=== PATIENT | female | born 1955 | race Two or more races ===

== ENCOUNTER → 2017-01-07 | Outpatient (CLI) | payer OTHER ==
--- NOTE | 2017-01-07 10:30 | RAD ---
DATE: 01/07/2017 EXAM: DIGITAL SCREEN BILAT W/CAD HISTORY: Routine screening COMPARISON: 03/07/2014 This study was interpreted with the benefit of Computerized Aided Detection (CAD). The breast parenchyma shows scattered fibroglandular densities. Breast parenchyma level B. FINDINGS: There are scattered fibroglandular densities in both breasts in a somewhat nodular pattern. There is a suggestion of a new nodule present anterolaterally in the left breast as best seen on the cc view. No other new or enlarging breast densities are seen. No suspicious microcalcifications are evident. IMPRESSION: Possible new left breast nodule. Diagnostic mammography including spot compression and straight medial lateral views are suggested. If a suspicious density persists, left breast ultrasound will be indicated. BI-RADS CATEGORY: 0 INCOMPLETE: NEEDS ADDITIONAL IMAGING EVALUATION AND/OR PRIOR MAMMOGRAMS FOR COMPARISON. RECOMMENDED FOLLOW-UP: ADD ADDITIONAL IMAGING PQRS compliance statement: Patient information was entered into a reminder system with a target due date for the next mammogram. Mammography is a sensitive method for finding small breast cancers, but it does not detect them all and is not a substitute for careful clinical examination. A negative mammogram does not negate a clinically suspicious finding and should not result in delay in biopsying a clinically suspicious abnormality. "Our facility is accredited by the [employer] Mammography [employer]."
== END | disposition home or self-care (01) ==
LOC: MAMMO 08:58
PROVIDERS: ATTEND Specialist
DX: Z12.31 Encounter for screening mammogram for malignant neoplasm of breast (principal)
CPT/HCPCS: G0202; 77067

== ENCOUNTER → 2017-01-22 | Outpatient (CLI) | payer OTHER ==
--- NOTE | 2017-01-22 12:22 | RAD ---
DATE: 01/22/2017 EXAM: DIGITAL DIAGNOSTIC LT, BREAST LEFT HISTORY: Suspicious screening study COMPARISON: 01/07/2017, 03/07/2014 This study was interpreted with the benefit of Computerized Aided Detection (CAD). The breast parenchyma shows scattered fibroglandular densities. Breast parenchyma level B. FINDINGS: Additional views of the left breast including CC liam images confirm the presence of a small 5 mm nodule in the lateral aspect left breast at the 2-3:00 location. Its margins are smooth. Just superior to this level there is a more superficial, lobulated nodule which has been present on prior exams. Left breast ultrasound, 01/22/2017: A targeted ultrasound exam of the left breast was performed. At the 3:00 location approximately 5 cm from the nipple there is a 5 x 5 x 3.5 mm predominantly anechoic nodule. There is a thin linear septation. There is mild posterior acoustic enhancement. The appearance suggests a septated cyst or cyst cluster. This appears to correspond to location to the new mammographic abnormality. At the 2:00 location, approximately 7 cm from the nipple and in a more superficial location there is a 4 x 4 x 2 millimeter anechoic structure compatible with a cyst. This corresponds to the stable mammographic nodule. Also noted at the 3:30 location approximately 7 cm from the nipple is an additional small smooth hypoechoic nodule. It measures 3-4 mm there are faint low level internal echoes. This is probably a complicated cyst, not clearly visualized on the mammograms. IMPRESSION: Three probable cysts and/or complicated cysts are noted laterally in the left breast as described above. One of these corresponds to the new mammographic nodule. Sonographic follow-up beginning in 6 months is suggested to confirm that these are benign cysts. BI-RADS CATEGORY: 3 PROBABLY BENIGN FINDING(S)-SHORT INTERVAL FOLLOW-UP SUGGESTED RECOMMENDED FOLLOW-UP: 6M 6 MONTH FOLLOW-UP PQRS compliance statement: Patient information was entered into a reminder system with a target due date for the next mammogram. Mammography is a sensitive method for finding small breast cancers, but it does not detect them all and is not a substitute for careful clinical examination. A negative mammogram does not negate a clinically suspicious finding and should not result in delay in biopsying a clinically suspicious abnormality. "Our facility is accredited by the [employer] Mammography [employer]."
== END | disposition home or self-care (01) ==
LOC: MAMMO 09:48
PROVIDERS: ATTEND Specialist
DX: N63.20 Unspecified lump in the left breast, unspecified quadrant (principal)
CPT/HCPCS: 76641; G0206; 77065

== ENCOUNTER → 2017-07-30 | Outpatient (CLI) | payer OTHER ==
--- NOTE | 2017-07-30 10:36 | RAD ---
Left breast ultrasound, 07/30/2017: History: Follow-up probable breast cysts A targeted ultrasound exam of left breast was performed in areas where abnormalities were identified on the 01/22/2017 exam. At the 3:00 location approximately 5 cm from the nipple there is a 4 x 4 x 2 mm nearly anechoic nodule which is unchanged. The features are compatible with a cyst. At the 3:30 location approximately 7 cm from the nipple there is a similar small smooth probable cyst measuring 3.5 x 3.4 x 3.4 mm. It also appears unchanged. At the 2:00 location approximately 7 cm from the nipple there is an additional 4 x 4 x 2 mm probable cyst, which is unchanged. IMPRESSION: Unchanged probable left breast cysts. 6 month follow-up left breast ultrasound at the time of the patient's yearly mammography is suggested. BI-RADS 3-probably benign findings
== END | disposition home or self-care (01) ==
LOC: US 08:47
PROVIDERS: ATTEND Specialist
DX: R92.8 Other abnormal and inconclusive findings on diagnostic imaging of breast (principal)
CPT/HCPCS: 76641

== ENCOUNTER → 2018-10-27 | Outpatient (CLI) | payer OTHER ==
--- NOTE | 2018-10-29 13:55 | RAD ---
DATE: 10/27/2018 10:11 AM EXAM: MAMMO FORTUNATO SCREENING BILATERAL, BREAST LEFT HISTORY: short-term imaging followup of a probably benign finding in the left breast. COMPARISON: 07/30/2017, 01/22/2017 Bilateral CC and MLO views of the breasts were performed. Bilateral breast tomosynthesis was performed in CC and MLO projections. This study was interpreted with the benefit of Computerized Aided Detection (CAD). FINDINGS: Breast Density: SCATTERED The breast parenchyma shows scattered fibroglandular densities. Breast parenchyma level B Nodular density in the left breast is grossly stable. No suspicious left breast microcalcification or architectural distortion. No suspicious masses, microcalcifications or architectural distortion is present to suggest malignancy in the right breast. The visualized axillae are unremarkable. Ultrasound was then performed. ULTRASOUND FINDINGS: Targeted ultrasound of the previously described probably benign finding was again performed. 2:00 position, 7 cm from the nipple: A near anechoic mass of circumscribed margins and internal homogeneous low level echoes is present with parallel orientation and is of oval/round shape. There is no internal vascularity on Doppler interrogation. It demonstrates posterior acoustic enhancement and measures 4 x 3 x 2 mm, previously 4 x 4 by 2 mm. At the 3:30 position, 7 cm from the nipple there is a 3 x 3 x 3 mm well-circumscribed hypoechoic lesion with enhanced through transmission, stable, previously also 3 x 3 x 3 mm. At the 3:00 position approximately 5 cm from the nipple a 3 x 2 x 3 mm anechoic well-circumscribed lesion with enhanced through transmission previously measured 4 x 4 by 2 mm, stable. IMPRESSION: Slightly irregular cystic structure at the 2:00 position 7 cm the nipple may represent a complicated cyst. BI-RADS CATEGORY: 3 PROBABLY BENIGN FINDING(S)-SHORT INTERVAL FOLLOW-UP SUGGESTED RECOMMENDED FOLLOW-UP: 12M 12 MONTH FOLLOW-UP recommend diagnostic evaluation 12 months with mammogram and ultrasound follow-up to ensure stability of the complicated cystic structure at the 2:00 position, 7 cm the nipple. PQRS compliance statement: Patient information was entered into a reminder system with a target due date for the next mammogram. Mammography is a sensitive method for finding small breast cancers, but it does not detect them all and is not a substitute for careful clinical examination. A negative mammogram does not negate a clinically suspicious finding and should not result in delay in biopsying a clinically suspicious abnormality. "Our facility is accredited by the [employer] Mammography [employer]."
== END | disposition home or self-care (01) ==
LOC: MAMMO 07:42
PROVIDERS: ATTEND Specialist
DX: Z12.31 Encounter for screening mammogram for malignant neoplasm of breast (principal); N63.21 Unspecified lump in the left breast, upper outer quadrant; N64.89 Other specified disorders of breast
CPT/HCPCS: 76641; 77063; 77067

== ENCOUNTER → 2019-11-16 | Outpatient (CLI) | payer OTHER ==
--- NOTE | 2019-11-16 18:45 | RAD ---
EXAMINATION: BREAST LEFT, MAMMO FORTUNATO DIAG BILAT History: Reason: LT BREAST F/U / Spl. Instructions: / History: Comparison: None. Technique: Bilateral digital diagnostic mammogram views were obtained. CAD was utilized. 3-D tomosynthesis images were acquired. Findings: Breast Tissue Density B : There are scattered areas of fibroglandular density. There are no dominant masses, suspicious microcalcifications, or architectural distortion. Small mass at the posterior outer right breast 10 cm from nipple measuring 0.5 cm diameter is slightly increased in size compared to previous no definite new nodule or mass. No suspicious Left breast 3:30 lesion 7 cm from nipple, there is a 0.24 cm transverse by 0.28 cm x 0.35 cm complex cyst or mass which has remained stable. At the 3:00 region 5 cm from the nipple, there is a 0.5 cm x 0.5 cm x 0.2 cm hypoechoic structure which has remained stable. Left axillary lymph nodes are benign in appearance. Procedure described 2:00 region 7 cm from nipple structure is not currently seen. No suspicious finding evident at the 2:00 region 10 cm from the nipple to correspond with mammographic finding. IMPRESSION: Slight increase in the nodule at the far posterior left outer upper breast. This finding is not evident on ultrasound imaging. Small masses previously seen involving the left breast have remained stable compared to prior exams. BI-RADS category 3: Probably benign. Six-month follow up left diagnostic mammogram recommended. Ultrasound may be needed. The images were reviewed with computer aided detection. Patient information is entered into the reminder system with a target due date for the next screening mammogram. Mammography is the most sensitive method for finding small breast cancers, but it does not detect them all and is not a substitute for careful clinical examination. A negative mammogram does not negate a clinically suspicious finding and should not result in delay in biopsying a clinically suspicious abnormality. "Our facility is accredited by the [employer] Mammography [employer]." Electronically signed by: Keanu Garcia MD (11/16/2019 6:42 PM) [id number]
== END | disposition home or self-care (01) ==
LOC: MAMMO 10:06
PROVIDERS: ATTEND Specialist
DX: N63.21 Unspecified lump in the left breast, upper outer quadrant (principal); R92.8 Other abnormal and inconclusive findings on diagnostic imaging of breast
CPT/HCPCS: 76641; 77066; G0279; 77062